=== PATIENT | female | born 1995 | race Caucasian/White ===

== ENCOUNTER 2025-03-25 14:02 | Emergency (ER) | payer MEDICAID, SELFPAY ==
--- NOTE | 2025-03-25 14:43 | XR_ITS ---
Examination: AP chest single view TECHNIQUE: AP portable chest single view Date and time: March 25, 2025 1455 hours INDICATIONS: Upper chest pain radiating to the left side enteritis of breath today FINDINGS: Normal heart size. Lungs are clear. The osseous structures are intact IMPRESSION: No active disease.
--- NOTE | 2025-03-25 14:43 | EKG_ITS ---
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
[2025-03-25 15:09] LABS: Basophils # (Auto) 0.0 Thou/mm3 (0.0-0.2); Basophils % (Auto) 0 % (0-2.5); Eosinophils # (Auto) 0.1 Thou/mm3 (0.0-0.5); Eosinophils % (Auto) 1 % (0-10); Hematocrit 35.4 % (36.0-46.0); Hemoglobin 12.4 g/dL (12.0-16.0); Immature Granulocytes Auto 0.03 Thou/mm3 (0.00-0.00); Lymphocytes # (Auto) 0.4 Thou/mm3 (1.0-4.8); Lymphocytes % (Auto) 5 % (10-50); Mean Corpuscular HGB Conc 35.0 g/dl (31.0-37.0); Mean Corpuscular Hemoglobin 29.2 pg (25.0-35.0); Mean Corpuscular Volume 83 fL (80-100); Monocytes # (Auto) 0.4 Thou/mm3 (0.0-0.8); Monocytes % (Auto) 4 % (0-12); Neutrophils # (Auto) 8.5 Thou/mm3 (1.8-7.7); Neutrophils % (Auto) 90 % (37-80); Nucleated Red Blood Cell # 0.00 Thou/mm3 (0.00-0.00); Nucleated Red Blood Cell % 0 /100 WBC (0); Platelet Count 262 Thou/mm3 (140-440); RDW Standard Deviation 39.8 fL (36.4-46.3); Red Blood Count 4.25 Miln/mm3 (4.00-5.20); White Blood Count 9.5 Thou/mm3 (3.6-11.0)
[2025-03-25 15:15] VITALS: BP 114/78; PULSE 105; RESP 20; TEMP 38.8; O2SAT 97
[2025-03-25 15:28] LABS: B-Type Natriuretic Peptide 31 pg/mL (0-100)
[2025-03-25 15:31] LABS: Alanine Aminotransferase 17 U/L (10-49); Albumin, Serum 4.4 gm/dL (3.5-5.0); Albumin/Globulin Ratio 1.6 (1.2-2.2); Alkaline Phosphatase 57 U/L (46-116); Anion Gap 9 (7-16); Aspartate Amino Transferase 20 U/L (0-34); BUN/Creatinine Ratio 12 Ratio (12-20); Bilirubin,Total 0.5 mg/dL (0.3-1.2); Blood Urea Nitrogen 7 mg/dL (9-23); Calcium 8.9 mg/dL (8.3-10.6); Calcium (Corrected) 8.9 mg/dL (8.5-10.1); Carbon Dioxide 24.2 mMol/L (20.0-31.0); Chloride 108 mMol/L (98-107); Creatinine (Component) 0.6 mg/dL (0.6-1.3); Estimated Creatinine Clearance 143.6 mL/min (>60); Globulin 2.7 gm/dL (2.3-3.5); Glucose 122 mg/dL (74-106); Osmolality,Calculated 280 (275-295); Potassium 3.7 mMol/L (3.4-5.1); Sodium 141 mMol/L (136-145); Total Protein 7.1 gm/dL (5.7-8.2); Troponin I < 0.002 ng/mL (0.0-0.045); eGFR > 60 See Note
[2025-03-25] MEDS: IBUPROFEN TAB 600 MG TABLET PO (16:00)
--- NOTE | 2025-03-25 16:01 | EDNOTE_ITS ---
ED SOB =RME/HPI General Chief Complaint: Shortness of Breath/Dyspnea Stated Complaint: SOB, left upper chest pain, body aches Time Seen by Provider: 03/25/25 15:50 Arrival date/time: 03/25/25 14:02 RME / HPI RME / HPI Narrative: 29-year-old female presents to the ED with a complaint of bodyaches, shortness of breath, pain in her upper chest, worse with deep breaths. The pain came on approximately 2 hours prior to arrival while she was laying in bed watching Netflix. She was unaware she had a temperature prior to arrival. She denies any runny nose, nasal congestion, ear pain, sore throat, cough, vomiting or diarrhea, or abdominal pain. She denies any dysuria or frequency. Related Data Previous Rx's ?Medication ?Instructions ?Recorded Hydrocodone/Acetaminophen * (NORCO 1 tab PO Q6H PRN AB DOMINAL PAIN 05/09/17 5/325 *) #20 tabs ibuprofen 600 mg tablet 600 mg PO Q8H PRN fever or p ain 03/25/25 #30 tabs Allergies Allergy/AdvReac Type Severity Reaction Status Date / Time NKA* Allergy Uncoded 03/25/25 14:06 Review of Systems Review of Systems Systems Reviewed: All systems reviewed, normal except as documented ED Exam Narrative Physical exam: Alert and oriented, very anxious appearing 29-year-old female, mild acute distress. Currently hyperventilating and crying. Vital signs blood pressure 114/78, pulse 105, respirations 20, temperature 101.8, O2 sat 97% on room air. Lungs are clear, minimal tachycardia, no murmurs. Positive anterior chest wall tenderness as well as pain with AP and lateral chest wall compression. Abdomen is soft and nontender. Moves all extremities well. Course Course Course Narrative: Labs reveal a normal white count, normal H&H and platelets. CMP is essentially normal with minimal changes to the chloride at 108, BUN 7, glucose 122, otherwise normal. Urinalysis reveals turbid light yellow urine with a specific gravity 1.024 with negative ketones, 2+ blood, negative nitrites, negative leukocyte esterase, 6 RBCs, 2 WBCs, 11 squamous epithelials and no bacteria. Urine hCG is negative. Troponin and BNP are normal. EKG reveals: Sinus rhythm at a rate of 100, no STEMI. COVID/influenza A/B swabs are negative. XR chest reveals: No acute process per radiologist. Patient advised to slow down breathing as hyperventilation can cause increasing pain in her chest. She was given ibuprofen 600 mg 1 tab p.o. Quality Measures none Orders Category Date Time Status Bedside COVID-19 Antigen Test NOW Care 03/25/25 15:37 Active Bedside Influenza A&B Antigen Test NOW Care 03/25/25 15:37 Completed EKG (ED ONLY) *Do not use* NOW Care 03/25/25 14:43 Completed EKG (ED Only) Stat Exams 03/25/25 14:43 Draft XR chest 1V portable Stat Exams 03/25/25 14:43 Completed BNP [B-Type Natriuretic Peptide] Stat Lab 03/25/25 14:52 Completed CBC Stat Lab 03/25/25 14:52 Completed CMP [Comprehensive Metabolic Panel] Stat Lab 03/25/25 14:52 Completed HCG Qualitative,Urine Stat Lab 03/25/25 16:58 Completed Troponin I Stat Lab 03/25/25 14:52 Completed Urinalysis, C/S if Indicated Stat Lab 03/25/25 16:58 Completed Acetaminophen Tab [Tylenol ES Tab] Med 03/25/25 15:39 Discontinued 1,000 mg PO X1 ONE Ibuprofen Tab [Motrin Tab] Med 03/25/25 15:41 Discontinued 600 mg PO X1 ONE Vital Signs Vital signs: Vital Signs Temperature 101.8 F H 03/25/25 15:15 Pulse Rate 105 H 03/25/25 15:15 Respiratory Rate 20 03/25/25 15:15 Blood Pressure 114/78 03/25/25 15:15 Pulse Oximetry (%) 97 03/25/25 15:15 Oxygen Delivery Method Room Air 03/25/25 15:15 Shortness of Breath / Dyspnea MDM Narrative MDM Narrative:: 29-year-old female presents to the ED with a complaint of bodyaches, shortness of breath, pain in her upper chest, worse with deep breaths. The pain came on approximately 2 hours prior to arrival while she was laying in bed watching Netflix. She was unaware she had a temperature prior to arrival. She denies any runny nose, nasal congestion, ear pain, sore throat, cough, vomiting or diarrhea, or abdominal pain. She denies any dysuria or frequency. Alert and oriented, very anxious appearing 29-year-old female, mild acute distress. Currently hyperventilating and crying. Vital signs blood pressure 114/78, pulse 105, respirations 20, temperature 101.8, O2 sat 97% on room air. Lungs are clear, minimal tachycardia, no murmurs. Positive anterior chest wall tenderness as well as pain with AP and lateral chest wall compression. Abdomen is soft and nontender. Moves all extremities well. Labs reveal a normal white count, normal H&H and platelets. CMP is essentially normal with minimal changes to the chloride at 108, BUN 7, glucose 122, otherwise normal. Urinalysis reveals turbid light yellow urine with a specific gravity 1.024 with negative ketones, 2+ blood, negative nitrites, negative leukocyte esterase, 6 RBCs, 2 WBCs, 11 squamous epithelials and no bacteria. Urine hCG is negative. Troponin and BNP are normal. EKG reveals: Sinus rhythm at a rate of 100, no STEMI. COVID/influenza A/B swabs are negative. XR chest reveals: No acute process per radiologist. Patient advised to slow down breathing as hyperventilation can cause increasing pain in her chest. She was given ibuprofen 600 mg 1 tab p.o. Discussed case with Dr. STRONG who agrees no further workup is necessary. Discharge the patient with a diagnosis of pleurisy and viral syndrome. Patient data External records reviewed:: None Clinical information provided by:: patient Social determinants that could affect healthcare access:: none Patient has the following chronic illnesses:: N/A How is presenting disease/condition affected by chronic disease/condition?: no chronic disease Evaluation data The following diagnostics were reviewed and interpreted by me:: lab results, radiology exam(s) and EKG tracing(s) Interpretation Summary: As noted above. Medications / Prescriptions Medication administrations:: Medication Administration History Discontinued Medications Acetaminophen (Acetaminophen 500 Mg Tablet) 1,000 mg PO X1 ONE Stop: 03/25/25 15:40 Last Admin: 03/25/25 16:02 Dose: Not Given Documented By: HELEN Non-Admin Reason: Cancelled by Provider Ibuprofen (Ibuprofen Tab 600 Mg Tablet) 600 mg PO X1 ONE Stop: 03/25/25 15:42 Last Admin: 03/25/25 16:00 Dose: 600 mg Documented By: HELEN Patient received ibuprofen 600 mg p.o. Discharge Plan Plan Patient Disposition: HOME (Self Care) Discharge Disposition comment: Stable and improved Prescriptions/Referrals Prescriptions/Med Rec: New ibuprofen 600 mg tablet 600 mg PO Q8H PRN (Reason: fever or pain) Qty: 30 0RF No Action Hydrocodone/Acetaminophen * (NORCO 5/325 *) 1 TAB tablet 1 tab PO Q6H PRN (Reason: ABDOMINAL PAIN) Qty: 20 0RF Referrals: Ethan Pastor MD [Primary Care Provider] - In 1 week Problem List Clinical Impression: Pleurisy, Acute chest wall pain, Acute viral syndrome Patient/Caregiver Discharge Instructions Education Materials: ED Pleurisy, ED Viral Syndrome (Adult) Additional Instructions: Follow-up with your primary care physician in 24 to 48 hours. Return to the ED for any new or worsening symptoms. Print Language: Bur[place]ian Stand Alone Forms: [employer] Award Info., Patient Portal Info Letter PA/MANUFACTURING JOB TITLES Supervising Physician PA/MANUFACTURING JOB TITLES Supervising Physician: Dr. STRONG
[2025-03-25 17:10] LABS: Collection Type, Urine Clean Catch
[2025-03-25 17:36] LABS: HCG Qualitative,Urine Negative
[2025-03-25 17:38] LABS: Bilirubin,Urine Negative (Negative); Blood,Urine 2+ (Negative); Clarity,Urine Turbid (Clear/Hazy); Color,Urine Lt-Yellow (Lt Yel-Yel); Culture Indicated,Urine Not Indicated; Glucose, Urine Negative (Negative); Ketones,Urine Negative (Negative); Leukocyte Esterase,Urine Negative (Negative); Nitrite,Urine Negative (Negative); PH,Urine 7.0 (5.0-7.0); Protein,Urine Negative (Neg - Trace); RBC,Urine 6 /hpf (0-3); Specific Gravity,Urine 1.024 (1.001-1.035); Squamous Epithelial Cell,Urine 11 /hpf (0-5); Urobilinogen,Urine 2.0 mg/dL (0.0-1.0); WBC,Urine 2 /hpf (0-5)
[2025-03-25 19:01] VITALS: BP 107/69; PULSE 80; RESP 18; TEMP 37.1; O2SAT 99
== END 2025-03-25 19:59 | disposition home or self-care (01) ==
PROVIDERS: Physician Assistant; Emergency Provider Emergency Medicine; PCP Family Medicine
DX: R09.1 Pleurisy (principal); R07.89 Other chest pain; R94.31 Abnormal electrocardiogram [ECG] [EKG]
CPT/HCPCS: 36415; 71045; 80053; 81001; 81025; 83880; 84484; 85025; 87400; 87811; 93005; 99284; A9270